=== PATIENT | female | born 1965 | race African-American/Black ===

== ENCOUNTER 2020-02-19 16:22 | Emergency (ER) | payer BC ==
--- NOTE | 2020-02-19 16:30 | PDOC ---
History of Present Illness - General Chief Complaint: Blood Pressure Problem Stated Complaint: HIGH BLOOD PRESSURE Time Seen by Provider: 02/19/20 16:30 History Source: Patient Exam Limitations: No Limitations - History of Present Illness Initial Comments: Patient is a 54 year old female with history of HTN, IgA nephropathy, and renal disease presents to the ED with the complaint of elevated blood pressures over the week with associated headache. Denies headache currently. She reported a "popped blood vessel" in her left eye with subsequent blurry vision but does not have blurry vision today. She reports palpitations and increased urinary frequency. Denies fevers, chest pain, SOB, syncope, lightheadedness, dizziness, numbness/tingling, weakness, excessive sweating or heat intolerance. 02/19/20 17:10 Past History - Medical History Allergies/Adverse Reactions: Allergies Allergy/AdvReac Type Severity Reaction Status Date / Time No Known Drug Allergies Allergy Verified 02/19/20 16:23 Home Medications: Ambulatory Orders Albuterol Sulfate Inhaler - [Ventolin Hfa Inhaler -] 1 - 2 inh PO QID PRN 02/19/20 Atorvastatin Ca [Lipitor] 20 mg PO DAILY 02/19/20 Cetirizine HCl [Zyrtec -] 10 mg PO DAILY 02/19/20 Enalapril/Hydrochlorothiazide [Vaseretic 10-25 mg Tablet] 1 each PO DAILY 02/19/20 Nebivolol HCl [Bystolic] 5 mg PO DAILY 02/19/20 Review of Systems - Review of Systems Able to Perform ROS?: Yes Is the patient limited [place] proficient: No Constitutional: No: Chills, Fever HEENTM: No: Blurred Vision Respiratory: No: Cough, Orthopnea, Shortness of Breath, SOB with Exertion Cardiac (ROS): Yes: Palpitations. No: Chest Pain, Edema, Lightheadedness, Synco pe, Chest Tightness ABD/GI: No: Constipated, Diarrhea, Nausea, Vomiting : Yes: Hematuria. No: Burning, Dysuria Neurological: No: Headache, Numbness, Tingling, Weakness Endocrine: No: Excessive Sweating, Intolerance to Heat *Physical Exam - Physical Exam General Appearance: Yes: Nourished, Appropriately Dressed. No: Apparent Distress HEENT: positive: EOMI, THEE, Symmetrical Neck: positive: Trachea midline Respiratory/Chest: positive: Lungs Clear, Normal Breath Sounds. negative: Respiratory Distress Cardiovascular: positive: Regular Rhythm, Regular Rate, S1, S2 Gastrointestinal/Abdominal: positive: Soft. negative: Tender, Guarding Musculoskeletal: negative: CVA Tenderness Integumentary: positive: Normal Color, Dry, Warm Neurologic: positive: pool servicer II-XII NML intact, Fully Oriented, Alert, Normal Mood/Affect, Motor Strength 5/5. negative: Sensory Deficit Medical Decision Making - Medical Decision Making 54 year old female with history of IgA nephropathy, HTN, and kidney disease presents with blood pressures with systolic 150-172 and diastolic 100s as well as headache and blurred vision 2 days ago which she attributes to scleral hemorrhage. She did not have focal neurological deficit on physical exam. Noncontrast head CT was done to rule out intracranial hemorrhage or ischemia, and was negative. Patient was advised to follow up outpatient with PCP for optim al blood pressure control. Discharge - Discharge Information Problems reviewed: Yes Clinical Impression/Diagnosis: Generalized headaches Condition: Stable Disposition: HOME - Admission No - Follow up/Referral - Patient Discharge Instructions Patient Printed Discharge Instructions: DI for High Blood Pressure, Malignant Hypertension Additional Instructions: You came to the ED due to higher than normal blood pressures with associated headaches. Your head CT scan was normal. You should follow up with PCP to optimize blood pressure medications to get blood pressure under control. Return to the ED if your headaches become unbearable or vision changes continue. - Post Discharge Activity
[2020-02-19 16:35] VITALS: BP 131/92; PULSE 81; TEMP 97.9; BMI 34.8
--- NOTE | 2020-02-19 16:35 | PDOC ---
Attending Attestation - Resident Resident Name: Eduardo William - HPI HPI: 02/23/20 17:38 Pt presents to the ED complaining of labile blood pressures and a three day history of WOOD[place] that was acutely worse today. Denies chest pain or shortness of breath. Headache has improved, but is still persistent. History of HTN that has been stable for many years. - Physicial Exam PE: 02/23/20 17:40 Agree with resident exam. Patient is alert and oriented and in no acute distress. HEENT: normocephalic, atruamatic. Cv: rrr no m/r/g Pulm: CTA b/l Abdomen: soft, non tender, non distended no guarding or rebound. Ext: no edema or tenderness. - Medical Decision Making 02/23/20 17:50 Pt presents to the ED complaining of labile blood pressures and headache for three days, worse this morning. Headache was gradual onset and is now resolving, but given her history of severe HTN at home, will check CT to rule out intracranial bleed. Will discharge if CT is negative. Discharge - Discharge Information Problems reviewed: Yes Clinical Impression/Diagnosis: Generalized headaches Condition: Stable Disposition: HOME - Follow up/Referral - Patient Discharge Instructions Patient Printed Discharge Instructions: Malignant Hypertension, DI for High Blood Pressure Additional Instructions: You came to the ED due to higher than normal blood pressures with associated headaches. Your head CT scan was normal. You should follow up with PCP to optimize blood pressure medications to get blood pressure under control. Return to the ED if your headaches become unbearable or vision changes continue. - Post Discharge Activity
[2020-02-19] MEDS ORDERED: ACETAMINOPHEN 500 MG TABLET (FP) PO ONE (17:22)
[2020-02-19] MEDS ORDERED: ACETAMINOPHEN 500 MG TABLET (FP) ONE (17:23)
== END 2020-02-19 18:55 | disposition home or self-care (01) ==
LOC: FER 16:22
DX: R51 Headache (principal)
CPT/HCPCS: 70450-TC; 99284-25

== ENCOUNTER 2022-08-11 16:42 | Emergency (ER) | payer BC, OTHER ==
[2022-08-11 18:33] VITALS: BMI 35.8
[2022-08-11] MEDS ORDERED: ACETAMINOPHEN 500 MG TABLET (FP) PO ONE (20:55)
[2022-08-11] MEDS ORDERED: POTASSIUM CHLORIDE TABS 20 MEQ TABLET.ER (FP) PO ONE ×2 (20:56→21:03)
[2022-08-11] MEDS ORDERED: ACETAMINOPHEN 325 MG TABLET (FP) ONE (21:03)
[2022-08-11 21:45] LABS: CALCIUM 9.5 mg/dL (8.5-10.1)
[2022-08-11 21:46] LABS: ALBUMIN 3.6 g/dl (3.4-5.0); BLOOD UREA NITROGEN 21.7 mg/dL (7-18)
[2022-08-11 21:48] LABS: BASO % 0.5 % (0-2.0); EOS % 3.7 % (0-4.5); HEMATOCRIT 40.3 % (32.4-45.2); HEMOGLOBIN 13.9 GM/dL (10.7-15.3); LYMPH % 35.7 % (8-40); MCH 28.1 pg (25.7-33.7); MCHC 34.5 g/dl (32.0-36.0); MEAN CELL VOLUME 81.6 fl (80-96); MEAN PLT VOLUME 7.4 fl (7.5-11.1); MONO % 6.7 % (3.8-10.2); NEUT % 53.4 % (42.8-82.8); PLATELET COUNT 243 10^3/uL (134-434); RBC 4.94 M/mm3 (3.60-5.2); WHITE BLOOD COUNT 8.5 K/mm3 (4.0-10.0)
[2022-08-11 21:49] LABS: CREATININE 1.2 mg/dL (0.55-1.3)
[2022-08-11 21:50] LABS: BILIRUBIN,TOTAL 0.6 mg/dL (0.2-1); TOT PROT 7.7 g/dl (6.4-8.2)
[2022-08-11 23:20] LABS: EPI CELLS >36 /uL (0-25.1); HYALINE CASTS 1 /uL (0-3.1); URINE APPEARANCE CLEAR; URINE BACTERIA 269 /uL (0-1359); URINE BILIRUBIN NEGATIVE (NEGATIVE); URINE COLOR YELLOW; URINE GLUCOSE (UA) NEGATIVE (NEGATIVE); URINE KETONE TRACE (NEGATIVE); URINE LEUK ESTERASE NEGATIVE (NEGATIVE); URINE NITRITE NEGATIVE (NEGATIVE); URINE PROTEIN 3+ (NEGATIVE); URINE RBC 28 /uL (0-23.9); URINE UROBILINOGEN 0.2 mg/dL (0.2-1.0); URINE WBC 19 /uL (0-25.8)
[2022-08-12 00:34] LABS: ALBUMIN 3.2 g/dl (3.4-5.0)
[2022-08-12 00:37] LABS: CREATININE 1.1 mg/dL (0.55-1.3)
[2022-08-12 00:38] LABS: BILIRUBIN,TOTAL 0.5 mg/dL (0.2-1)
[2022-08-12 00:44] VITALS: BP 122/83; PULSE 78; RESP 16; TEMP 97.8
== END 2022-08-12 01:10 | disposition home or self-care (01) ==
LOC: JER 16:42
DX: E87.6 Hypokalemia (principal); R10.30 Lower abdominal pain, unspecified
CPT/HCPCS: 36415; 74176-TC; 80053; 81003; 83690; 83735; 85025; 87086; 93005; 93010; 99285-25